=== PATIENT | female | born 1995 | race Caucasian/White ===

== ENCOUNTER 2016-09-30 16:11 | Emergency (ER) | payer MEDICAID ==
[~2016-09-30] VITALS: Ht 149.9 cm; Wt 46.8 kg
[~2016-09-30 16:11] MED LIST: ACYCLOVIR800 MG PO; AFRIN 12 HOUR0.05 %; AMOXICILLIN500 MG PO; AMOXICILLIN875 MG OR; BENTYL10 MG/5 ML OR; CIPROFLOXACN500 MG PO; CLARITHROMYC250 MG PO; CLARITIN10 M1 PO; DICYCLOMINE10 MG PO; FLEXERIL PO; GARDASIL IM; IMODIUM2 MG PO; MENACTRA PO; MIRALAX3350 N1 PO; NAPROSYN500 MG PO; NAPROXEN500 MG PO; NO; NO HOME MEDS; PHENERGAN25 MG/TAB PO; PRENATABS FA PO; PRILOSEC20 MG/CAP PO; TESSALON PER100 MG PO; TORADOL PO; ULTRAM50 M1 PO; ULTRAM50 MG PO; ZITHROMAX250 MG PO; ZOFRAN ODT4 MG PO; ZOVIRAX400 MG PO; ZOVIRAX51 EX
[2016-09-30 17:22] LABS: HEMATOCRIT 35.3 % (37.0-47.0); IMMATURE GRANULOCYTES 0.2 % (0.0-1.0); MEAN CELL VOLUME 85.7 fL CALC (80.0-100.0); MEAN CORPUSCULAR HGB 29.1 pG CALC (26.0-32.0); NEUT# 4.49 thou/uL (2.00-7.15); RED BLOOD COUNT 4.12 mill/uL (4.20-5.60); RED CELL DISTRI WIDTH 12.3 % (11.5-15.5)
[2016-09-30 17:29] LABS: URINE BILIRUBIN - DIPSTICK NEGATIVE (NEGATIVE); URINE BLOOD DIPSTICK NEGATIVE (NEGATIVE); URINE CLARITY CLEAR; URINE COLOR YELLOW; URINE GLUCOSE - DIPSTICK NEGATIVE (NEGATIVE); URINE KETONE NEGATIVE (NEGATIVE); URINE LEUK ESTERASE NEGATIVE (NEGATIVE); URINE NITRITE - DIPSTICK NEGATIVE (Negative); URINE PROTEIN - DIPSTICK NEGATIVE (NEG-TRACE)
[2016-09-30 17:30] LABS: ALBUMIN 3.9 g/dL (3.2-5.0); ALKALINE PHOSPHATASE 43 u/l (38-126); AMYLASE < 30 u/l (30-110); ANION GAP 13 (6-22 (CALC)); BILIRUBIN, TOTAL 0.4 mg/dL (0.0-1.4); BUN 8 mg/dL (7-17); BUN/CREATININE RATIO 13 (12-20 (CALC)); CALCIUM 9.3 mg/dL (8.4-10.2); CARBON DIOXIDE 23 mmol/l (22-30); CHLORIDE 104 mmol/l (95-108); CREATININE 0.6 mg/dL (0.5-1.0); GFR > 60 ML/MIN (>=60 (CALC)); GFR FOR AFR.AMER. > 60 ML/MIN (>=60 (CALC)); GLUCOSE 78 mg/dL (65-105); LIPASE 36 u/l (23-300); SGOT/AST 17 u/l (14-36); SGPT/ALT 23 u/l (9-52); SODIUM 136 mmol/l (137-146); TOTAL PROTEIN 6.5 g/dL (6.3-8.2)
[2016-09-30 18:11] LABS: BETA-HCG, QUANT(RESULT NUMBER) 67994 mIU/mL
[2016-09-30 18:34] VITALS: BP 94/55
== END 2016-09-30 18:40 | disposition home or self-care (01) | DRG 781 ==
LOC: ED 16:11
PROVIDERS: Emergency Medicine
DX: O21.9 Vomiting of pregnancy, unspecified (principal); R10.9 Unspecified abdominal pain; Z3A.01 Less than 8 weeks gestation of pregnancy

== ENCOUNTER 2017-06-22 12:12 | Emergency (ER) | payer MEDICAID ==
[~2017-06-22] VITALS: Ht 149.9 cm; Wt 52.0 kg
[2017-06-22 13:42] LABS: URINE BILIRUBIN - DIPSTICK NEGATIVE (NEGATIVE); URINE BLOOD DIPSTICK TRACE (NEGATIVE); URINE CLARITY CLEAR; URINE COLOR YELLOW; URINE GLUCOSE - DIPSTICK NEGATIVE (NEGATIVE); URINE KETONE NEGATIVE (NEGATIVE); URINE LEUK ESTERASE NEGATIVE (NEGATIVE); URINE NITRITE - DIPSTICK NEGATIVE (Negative); URINE PH 5.5 (4.5-8.0); URINE PROTEIN - DIPSTICK NEGATIVE (NEG-TRACE); URINE UROBILINOGEN - DIPSTICK 0.2 E.U./dL (0.2)
[2017-06-22 13:49] LABS: HEMATOCRIT 38.7 % (37.0-47.0); HEMOGLOBIN 12.5 g/dl (12.0-16.0); IMMATURE GRANULOCYTES 0.3 % (0.0-1.0); MEAN CELL VOLUME 85.8 fL CALC (80.0-100.0); MEAN CORPUSCULAR HGB 27.7 pG CALC (26.0-32.0); MEAN CORPUSCULAR HGB CONC 32.3 g/L CALC (32.0-36.0); NEUT# 3.55 thou/uL (2.00-7.15); RED BLOOD COUNT 4.51 mill/uL (4.20-5.60)
[2017-06-22 13:57] LABS: ALBUMIN 4.5 g/dL (3.2-5.0); ALKALINE PHOSPHATASE 52 u/l (38-126); AMYLASE 54 u/l (30-110); ANION GAP 16 (6-22 (CALC)); BILIRUBIN, TOTAL 0.4 mg/dL (0.0-1.4); BUN 5 mg/dL (7-17); BUN/CREATININE RATIO 6 (12-20 (CALC)); CARBON DIOXIDE 21 mmol/l (22-30); CHLORIDE 110 mmol/l (95-108); CREATININE 0.8 mg/dL (0.5-1.0); GFR > 60 ML/MIN (>=60 (CALC)); GFR FOR AFR.AMER. > 60 ML/MIN (>=60 (CALC)); LIPASE 48 u/l (23-300); POTASSIUM 3.9 mmol/l (3.5-5.1); SGOT/AST 43 u/l (14-36); SGPT/ALT 58 u/l (9-52); SODIUM 142 mmol/l (137-146)
[2017-06-22] MEDS ORDERED: BENTYL10 MG PO (16:09)
[2017-06-22 16:16] VITALS: BP 115/57
== END 2017-06-22 16:21 | disposition home or self-care (01) | DRG 392 ==
LOC: ED 12:12
PROVIDERS: Emergency Medicine
DX: R10.31 Right lower quadrant pain (principal); R10.11 Right upper quadrant pain; R11.2 Nausea with vomiting, unspecified; R19.7 Diarrhea, unspecified
CPT/HCPCS: Q9967

== ENCOUNTER 2018-05-15 13:38 | Emergency (ER) | payer MEDICAID ==
[~2018-05-15] VITALS: Ht 149.9 cm; Wt 48.6 kg
[~2018-05-15 13:38] MED LIST changes: +BENTYL10 MG PO
[2018-05-15] MEDS ORDERED: PHENERGAN25 MG/TAB PO (14:24)
[2018-05-15] MEDS ORDERED: CLINDAMYCIN300 M1 PO (14:24)
[2018-05-15 14:31] VITALS: BP 117/47
== END 2018-05-15 14:35 | disposition home or self-care (01) ==
LOC: ED 13:38
DX: L02.212 Cutaneous abscess of back [any part, except buttock and flank] (principal); J02.9 Acute pharyngitis, unspecified